=== PATIENT | female | born 1970 | race Caucasian/White ===

== ENCOUNTER → 2016-11-18 | Day surgery (SDC) | payer OTHER ==
[~2016-11-18] MED LIST: BENTYL 20MG TAB20 MG PO; BIOTIN1 MG; CYANOCOBAL1000 MCG/1 IM; LOPERAMIDE2 MG PO; LORTAB ELIX0.5 MG/ML PO; MULTIPLE VITAMI1 CAP PO; PRILOSEC 20MG20 MG PO; VITAMIN D31000 I1 PO; Vitamin D; Vitamin D3 PO
== END ==
LOC: COL.RAD 13:13
DX: M25.512 Pain in left shoulder (principal); E05.90 Thyrotoxicosis, unspecified without thyrotoxic crisis or storm